=== PATIENT | female | born 1970 | race Caucasian/White ===

== ENCOUNTER 2020-06-28 00:37 | Outpatient (REF) | payer SELFPAY ==
[2020-06-28 02:58] LABS: SARS COV2 PCR INHOUSE NEGATIVE (Negative)
== END 2020-06-28 00:38 | disposition home or self-care (01) ==
LOC: HO.LAB 00:37
PROVIDERS: Visit Provider Internal Medicine
DX: Z20.828 Contact with and (suspected) exposure to other viral communicable diseases (principal)
CPT/HCPCS: 87635

== ENCOUNTER 2020-08-10 07:38 | Outpatient (REF) | payer OTHER, SELFPAY ==
[2020-08-10 08:26] LABS: COVID-19 Test Negative (Negative); IDNOW Serial# 55D5AD1C
== END 2020-08-10 07:39 | disposition home or self-care (01) ==
LOC: HO.EMPCOV 07:38
PROVIDERS: Visit Provider Internal Medicine
DX: Z20.828 Contact with and (suspected) exposure to other viral communicable diseases (principal)
CPT/HCPCS: 87635; C9803

== ENCOUNTER 2021-08-29 05:47 | Outpatient (REF) | payer OTHER, SELFPAY ==
[2021-08-29 06:19] LABS: COVID-19 Test Negative (Negative); IDNOW Serial# 9DD0AD1C
== END 2021-08-29 05:48 | disposition home or self-care (01) ==
LOC: HO.LAB 05:47
PROVIDERS: Visit Provider Internal Medicine
DX: Z20.822 Contact with and (suspected) exposure to COVID-19 (principal); R05.9 Cough, unspecified
CPT/HCPCS: 36415; 87635